=== PATIENT | male | born 1960 | race Caucasian/White ===

== ENCOUNTER 2016-07-15 05:42 | Day surgery (SDC) | payer BC ==
--- NOTE | 2016-07-14 15:18 | GHP ---
[f rep st] PREOP HISTORY AND PHYSICAL DATE OF OPERATION: The patient is planned for surgery on 07/15/2016, endoscopic plantar fascial release on his left foot. HISTORY OF PRESENT ILLNESS: The patient presented to [facility] back in March of 2016 with a diagnosis of left plantar fasciitis. 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 He is on his feet 5 hours a day, 3-4 days a week. He walks approximately 3 miles per day on average. He enjoys running when his feet are not hurting, particularly the left foot. He likes to run 30-40 minutes 3 times a week. 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 PAST MEDICAL HISTORY: Significant for hypertension, which is well controlled with medication. He had a left total hip replacement without complication or problems to anesthesia. He also had LASIK surgery on his eyes. He has some minor arthritis. No other medical problems. MEDICATIONS: He is on a statin, lisinopril 20 mg daily, aspirin daily, lansoprazole 30 mg as needed, and naproxen 500 mg p.r.n. for arthritic pain. ALLERGIES: He has no known drug allergies. SOCIAL HISTORY: He is a past tobacco user. He quit greater than 5 years prior. He smoked for approximately 20 years. He denies alcohol use. FAMILY HISTORY: Unremarkable, noncontributory to his chief complaint. He has no family history of unusual foot problems or other health issues. PHYSICAL EXAM: He has normal pulses, 2/4, on the dorsal, pedal and posterior tibial arteries. Capillary flow less than 5 seconds to digits x10. Minimal varicosities to either extremity, and he has no edema to either extremity. Neurologic evaluation: Sharp, dull, light touch, proprioception all intact and symmetric to the digital level. He has normal temperature, texture, and turgor with normal hair distribution of both lower extremities. No abnormalities noted on dermatologic evaluation. He has a fairly large foot type with severe midfoot pronation. His manual muscle testing was 5/5 to the anterior, lateral, and posterior leg muscles, as well as the intrinsic arch muscles. He has pain along the medial calcaneal tuberosity on the left foot right at the insertion. This is severe. It has not responded with increased midtarsal joint support. Stretching, physical therapy, anti-inflammatories, change in shoes, icing all have failed to alleviate his symptoms. At this point, he wanted a more definitive approach. ASSESSMENT: Plantar fasciitis. PLAN: Plan is to do an endoscopic plantar fascia release on the left foot. Preoperatively, we discussed risks and complications, including residual pain and delayed healing. The patient understood. Consent form was signed. He was given both oral and written postop instructions, along with a prescription for Percocet 10/325, #30, 1 tab p.o. q.4-6h p.r.n. pain and a prescription for Phenergan tablets, generic, 12.5 mg, #30, 1 tab p.o. q.6h p.r.n. nausea. He will take these medications postoperatively. In our discussion, preoperatively , we discussed risks and complications of the procedure, including residual pain and the possibility that the fascia could re-adhere or heal back to the calcaneus, causing similar pain down the road. We talked about the risk of infection, specifically. He understood. Consent form was signed. He was given the oral and written postop instructions as stated. He is to follow up x3 days postop at [facility] [place]. He was given my cell phone number for 24-hour call should he have any problems or questions postoperatively. /[id number]/MODL MTDD
[2016-07-15] MEDS ORDERED: LIDOCAINE 1% 5 ML SDV ONE (06:18)
[2016-07-15] MEDS ORDERED: BUPIVACAINE/EPI 0.25% 30 ML SDV ONE (06:41)
[2016-07-15] MEDS ORDERED: LIDOCAINE 1% 30 ML SDV ONE (06:41)
[2016-07-15] MEDS ORDERED: ceFAZolin 1 GM/5 ML SYR ONE (06:42)
[2016-07-15] MEDS ORDERED: MIDAZOLAM 2 MG/2 ML VIAL ONE (07:05)
[2016-07-15] MEDS ORDERED: PROPOFOL/EMULSION 500 MG/50 ML BOTTLE IV ONE (07:11)
[2016-07-15] MEDS ORDERED: LIDOCAINE 2% 5 ML SDV ONE (07:11)
[2016-07-15] MEDS ORDERED: fentaNYL 100 MCG/2 ML INJ ONE (07:11)
[2016-07-15] MEDS ORDERED: ceFAZolin 1 GM VIAL ONE ×2 (07:22)
[2016-07-15] MEDS ORDERED: ceFAZolin 2 GM/DEXTROSE 100 ML IV ONE (07:30)
[2016-07-15] MEDS ORDERED: ONDANSETRON 4 MG/2 ML VIAL ONE (07:52)
[2016-07-15] MEDS ORDERED: KETOROLAC 30 MG/1 ML SDV ONE (07:52)
--- NOTE | 2016-07-18 14:52 | GOP ---
[f rep st] OPERATIVE REPORT DATE OF OPERATION: 07/15/2016 SURGEON: Horace Nazario DPM ANESTHESIA: IV MAC plus local infiltration of approximately 10 cc of 0.25% Marcaine with epinephrin e and 1% lidocaine plain. 5 cc each for a total of 10 cc of local. PREOPERATIVE DIAGNOSIS: Plantar fasciitis, left, with calcaneal spur. POSTOPERATIVE DIAGNOSIS: Plantar fasciitis with spur. PROCEDURE PERFORMED: Endoscopic plantar fasciotomy, left foot. FINDINGS: ESTIMATED BLOOD LOSS: Less than 5 cc. DESCRIPTION OF PROCEDURE: The patient was taken to the operating room, placed in supine position. After local and MAC anesthesia, the left lower extremity was elevated, prepped, and draped in the [facility] sterile OR fashion achieving a sterile field about the entire distal aspect of the foot. After elevation and exsanguination, tourniquet was inflated to 225 mmHg. Total tourniquet time was 14 min utes. Utilizing the preop x-rays for incision site, the stab incision was made on the medial aspect of the heel at the insertion of the plantar fascia into the medial calcaneal tuberosity. The fasci a was from the subcu tissue utilizing a myofascial elevator from medial to lateral. The t rocar and tube were placed from medial to lateral making a lateral incision such that the tube would exit the lateral aspect of the heel. Swabs were placed through the tube, and the tube was oriented so that the opening was dorsal to view the plantar fascia. At this point, the fascia was identifie d, measured from medial to lateral, and the medial 2/3 of the plantar fascia were released utilizing the curved blade. Trocar was then placed through the tube. The tube was rotated 180 degrees, and any and all plantar fascial strands were released plantar to the tube. It should be noted that the probe was utilized after release of the fascia both dorsally and plantarly to assure that there was an adequate release of the plantar fascia. The area was flushed copiously with dilute antibiotic so lution. The trocar was placed through the tube. The tube was removed from the operative site. The great toe was dorsiflexed intraoperatively to assure that the medial plantar fascia band was indeed released adequately, and this was indeed the case. Skin closure was carried out via 4-0 Prolene in a simple interrupted and horizontal mattress suture, both medially and laterally. Adaptic, 4 x 4's , Laron, and Kerlix were placed over the extremity. The tourniquet was released. All digits return ed to a uniform pink color with normal capillary flow immediately. The patient went into recovery i n a satisfactory state with all vital signs stable. His prognosis was very good postoperatively, an d he will be followed up x3 days postop at [facility]. He was given my cell ph one number for 24-hour call should he have any problems or questions. SURGEON: Horace Nazario DPM. COMPLICATIONS: There were no complications. DRAINS: No drains were placed into the operative site. /[id number]/MODL
== END 2016-07-15 09:55 | disposition home or self-care (01) ==
LOC: FSGY 05:42
PROVIDERS: ATTEND Podiatrist
PROC: 0KNW4ZZ Release Left Foot Muscle, Percutaneous Endoscopic Approach (ICD-10-PCS; principal; 2016-07-15 07:15)
DX: M72.2 Plantar fascial fibromatosis (principal); M77.32 Calcaneal spur, left foot; M19.90 Unspecified osteoarthritis, unspecified site; I10 Essential (primary) hypertension; K21.9 Gastro-esophageal reflux disease without esophagitis; G47.33 Obstructive sleep apnea (adult) (pediatric); Z96.642 Presence of left artificial hip joint; Z87.891 Personal history of nicotine dependence
CPT/HCPCS: J0690; J1885; J2250; J2405; J2704; J3010